=== PATIENT | male | born 1960 | race Caucasian/White ===

== ENCOUNTER → 2023-11-09 09:54 | Outpatient (REF) | payer MEDICARE, BC, SELFPAY | LOC: DHCBC HW 09:54 | PROVIDERS: ATTENDING PHYSICIAN Internal Medicine Cardiovascular Disease | DX: I25.10 Atherosclerotic heart disease of native coronary artery without angina pectoris (principal); Z95.5 Presence of coronary angioplasty implant and graft; I10 Essential (primary) hypertension | CPT/HCPCS: 93306 ==

== ENCOUNTER → 2023-11-11 10:26 | Outpatient (REF) | payer MEDICARE, BC, SELFPAY | LOC: RCS 10:26 | PROVIDERS: ATTENDING PHYSICIAN Internal Medicine Cardiovascular Disease; FAMILY PHYSICIAN Physician Assistant | DX: R00.2 Palpitations (principal) | CPT/HCPCS: 93225; 93226 ==

== ENCOUNTER → 2024-06-18 06:23 | Day surgery (SDC) | payer MEDICARE, BC, SELFPAY ==
[2024-06-18 08:06] LABS: Glucose - Point of Care 116 mg/dl (70-99)
== END ==
LOC: GI 06:23
PROVIDERS: ATTENDING PHYSICIAN Internal Medicine Gastroenterology
DX: Z12.11 Encounter for screening for malignant neoplasm of colon (principal); D12.3 Benign neoplasm of transverse colon; D12.4 Benign neoplasm of descending colon; K63.5 Polyp of colon; K57.30 Diverticulosis of large intestine without perforation or abscess without bleeding; K62.1 Rectal polyp; K64.0 First degree hemorrhoids; D50.0 Iron deficiency anemia secondary to blood loss (chronic); K31.A0 Gastric intestinal metaplasia, unspecified; K25.9 Gastric ulcer, unspecified as acute or chronic, without hemorrhage or perforation; K31.7 Polyp of stomach and duodenum; Z98.84 Bariatric surgery status
CPT/HCPCS: 45385; 45380; 43239; 88305; 82962; 88342

== ENCOUNTER → 2024-07-16 14:04 | Outpatient (REF) | payer MEDICARE, BC, SELFPAY | LOC: HWRAD 14:04 | PROVIDERS: ATTENDING PHYSICIAN Physician Assistant | DX: R10.9 Unspecified abdominal pain (principal) | CPT/HCPCS: 74176 ==

== ENCOUNTER 2024-08-02 12:50 | Emergency (ER) | payer MEDICARE, BC, SELFPAY ==
[2024-08-02 14:00] VITALS: BP 138/76
[2024-08-02 14:14] LABS: ALT (SGPT) 29 U/L (0-50); AST (SGOT) 28 U/L (17-59); Albumin 4.4 g/dl (3.5-5.0); Alkaline Phosphatase 48 U/L (38-126); Blood Urea Nitrogen 28 mg/dl (9-20); Calcium 9.9 mg/dl (8.4-10.2); Carbon Dioxide 22 mmol/L (22-30); Chloride 104 mmol/L (98-107); Glucose 193 mg/dl (70-99); Potassium 4.3 mmol/L (3.5-5.1); Sodium 141 mmol/L (135-145); Total Bilirubin 0.4 mg/dl (0.2-1.3); Total Protein 7.4 g/dl (6.3-8.2); eGFR > 60.00
[2024-08-02 14:15] VITALS: BMI 36.8
[2024-08-02 14:41] LABS: NT-proBNP 136 pg/ml; Troponin I < 0.012 ng/ml
--- NOTE | 2024-08-02 15:13 | ED.GENMED ---
History of Present Illness
General
Chief Complaint: Abnormal Lab Value
Time Seen by Provider: 08/02/24 14:34
History of Present Illness
History of Present Illness:
64-year-old male with history of hypertension and hyperlipidemia presents to the emergency department for evaluation of persistent coughing for the past 10 days. Has been seen in urgent care several times in the past week before coming to the ER.
On July 28 he had a chest x-ray that reportedly showed a lingular infiltrate per documentation, he was started on Augmentin. He followed up 3 days later with worsening symptoms and was switched to doxycycline and given prednisone. He continues
to have frequent dry cough, denies fevers or night sweats.
Review of Systems
Review of Systems
Allergies reviewed?: Yes
All Other Systems: ROS reviewed and negative except as documented in HPI and ROS
Phy Exam
Physical Exam
Physical Exam:
GEN: Well appearing, NAD, WDWN
HEENT: Oral mucosa moist, no scleral icterus
Cardiac: Regular rate and rhythm, no murmurs
Lung: No respiratory distress, no tachypnea, lungs clear to auscultation bilaterally
MSK: No gross deformity or injuries
Skin: Good color, no pallor or jaundice, no rashes
Neuro: AO x3, moves all extremities freely
Psych: Calm, cooperative
Course
Orders/Labs/Results
Orders:
Orders
08/02/24 13:08
CR Chest - 2 Views Urgent
Comment:
Reason For Exam: SOB, cough
08/02/24 13:11
EKG [Electrocardiogram (*1)] Urgent
Reason for Study: Shortness of Breath
EKG- Treatment ONCE
08/02/24 13:26
BNP [NT-proBNP] Urgent
Comprehensive Metabolic Panel Urgent
Troponin I Urgent
08/02/24 14:43
Complete Blood Count/With Diff Urgent
Abnormal Lab Results
08/02/24
13:26
BUN 28 H mg/dl
(9-20)
Glucose 193 H mg/dl
(70-99)
08/02/24 13:26
Vital Signs
Initial and Last Documented VS:
Initial Vital Signs
Temp Pulse Resp Pulse Ox
98.6 F 73 18 95
08/02/24 13:03 08/02/24 13:03 08/02/24 13:03 08/02/24 13:03
Last Documented Vital Signs
Temp Pulse Resp BP Pulse Ox
97.9 F 64 20 138/76 94
08/02/24 14:00 08/02/24 14:00 08/02/24 14:00 08/02/24 14:00 08/02/24 14:26
MDM/Problems Addressed
MDM/Problems Addressed:
Labs unremarkable, CBC was clotted however do not see indication to repeat this given that he is likely to have mild leukocytosis in the setting of steroid use and this would not [employer] at this time. No clinical concern for cardiogenic
etiology to symptoms. Likely atypical pneumonia, educated patient this may take some time to improve. Continue current therapy.
*Critical Care Note
Total Time (30-74mins, 75-104mins- exclusive of procedures): Not Applicable
ED Attending Note
-
Portions of this chart may have been created with voice recognition software.� Occasional wrong word or��sound alike� substitutions may have occurred due to the inherent limitations of voice recognition software.
Discharge Plan
Departure
Patient Disposition: Home (Routine Discharge)
Date of Disposition: 08/02/24
Time of Disposition: 15:13
Patient with high blood pressure during this ER visit?: No
Discharge Problem:
Atypical pneumonia
Instructions: Atypical Pneumonia (Mycoplasma and Viral) (DC)
Prescriptions:
New
albuterol sulfate 2.5 mg /3 mL (0.083 %) solution for nebulization
2.5 mg inhalation Q6H Qty: 90 0RF
promethazine-DM 6.25-15 mg/5 mL syrup
5 ml PO Q6H PRN (Reason: Cough) Qty: 118 0RF
Referrals:
Candi Henley PA-C [Family Provider] -
Interventions
Interventions:
*Risk Screen - Suicide Last Done: 08/02/24 13:03
*General Assessment Last Done: 08/02/24 13:03
*Neglect/Abuse Screening Last Done: 08/02/24 13:03
*ED COVID-19 Vaccine History Last Done: 08/02/24 13:03
*Nursing Disposition Last Done: 08/02/24 15:29
Discharge Date and Time
Discharge Date/Time: 08/02/24 15:30
Print Language: THAI
== END 2024-08-02 15:30 | disposition home or self-care (01) ==
LOC: EMR 12:50
PROVIDERS: Emergency Medicine; EMERGENCY PHYSICIAN Emergency Medicine; FAMILY PHYSICIAN Physician Assistant
DX: J18.9 Pneumonia, unspecified organism (principal); I10 Essential (primary) hypertension; E78.5 Hyperlipidemia, unspecified
CPT/HCPCS: 99285; 71046; 80053; 83880; 84484; 93005

== ENCOUNTER → 2024-08-08 07:53 | Outpatient (REF) | payer MEDICARE, BC, SELFPAY | LOC: HWRAD 07:53 | PROVIDERS: ATTENDING PHYSICIAN Internal Medicine Gastroenterology; FAMILY PHYSICIAN Physician Assistant | DX: R10.11 Right upper quadrant pain (principal) | CPT/HCPCS: 76700 ==

== ENCOUNTER 2025-04-16 11:52 | Emergency (ER) | payer MEDICARE, BC, SELFPAY ==
[2025-04-16 11:54] VITALS: BP 139/77
--- NOTE | 2025-04-16 13:06 | ED.MUSCINJ ---
HPI-Injury
General
Chief Complaint: Fall
Time Seen by Provider: 04/16/25 12:40
History of Present Illness-Injury
Initial Injury comments:
64-year-old male with history of chronic back pain presenting to the emergency department with left elbow pain. Patient reports prior to arrival he tripped, and landed on concrete onto his left elbow. He immediately felt pain and swelling. He has
been using ice to the area. He took a Percocet, which he uses for his back pain. Notes that he is able to range his elbow appropriately, however with pain. Denies head injury or loss of consciousness. Denies any prodromal symptoms in the fall
such as dizziness or lightheadedness. Denies numbness or tingling to the extremity. Denies additional acute medical complaints
Phy Exam
Physical Exam
Physical Exam:
General: Well-appearing, no clinical signs of dehydration, nontoxic and in no acute distress
HEENT: protecting airway
Neck: appears supple
CV: Normal heart rate
Resp: No accessory muscle use, no increased work of breathing
Abd: No distention
Extremities: No obvious deformity to the left elbow. Swelling proximal to the posterior left elbow with tenderness to palpation. Range of motion is globally intact. Distal sensation and pulses intact. No erythema or warmth.
Neuro: alert, no focal neurologic deficit
: deferred
Rectal: deferred
Psych: Normal affect
Skin: Intact
Injury Course
Orders/Labs/Results
Orders:
Orders
04/16/25 11:53
Elbow, 3 view, Left [CR Elbow - Left Min 3 Views ] Urgent
Comment:
Reason For Exam: pain post fall
04/16/25 13:06
Sling Left-Treatment ONCE
MDM/Problems Addressed
MDM/Problems Addressed:
64-year-old male presenting with left elbow pain after a fall on his elbow. Vital signs are normal.
On exam patient is resting comfortably, no acute distress or discomfort. On examination of left elbow, there is swelling proximal to the elbow joint with generalized pain. No focal neurologic deficits. No infectious findings. Range of motion is
grossly intact. X-ray obtained prior to my assessment. No signs of fracture or malalignment, however there is mention of a calcification in the posterior soft tissues suggesting an age-indeterminate but probably chronic triceps avulsion. This is
area of patient's pain. However suspected to be chronic. Will place patient in a sling. Ultimately feel stable for discharge with supportive therapy and outpatient orthopedic follow-up. Copy of results provided to patient. Return precautions
discussed
*Pulse Oximetry
SaO2: 96
Oxygen Mode of Delivery: Room air
Patient hypoxic: no
*Critical Care Note
Total Time (30-74mins, 75-104mins- exclusive of procedures): Not Applicable
ED Attending Note
-
Portions of this chart may have been created with voice recognition software.� Occasional wrong word or��sound alike� substitutions may have occurred due to the inherent limitations of voice recognition software.
Discharge Plan
Departure
Prescriptions:
No Action
albuterol sulfate 2.5 mg /3 mL (0.083 %) solution for nebulization
2.5 mg inhalation Q6H Qty: 90 0RF
promethazine-DM 6.25-15 mg/5 mL syrup
5 ml PO Q6H PRN (Reason: Cough) Qty: 118 0RF
Interventions
Interventions:
*Risk Screen - Suicide Last Done: 04/16/25 11:54
*General Assessment Last Done: 04/16/25 11:54
ED-Musculoskeletal Assessment Last Done: 04/16/25 12:39
ED- Neurological Assessment Last Done: 04/16/25 12:39
ED-Skin Assessment Last Done: 04/16/25 12:41
Discharge Date and Time
Print Language: CAMBODIAN
== END 2025-04-16 13:58 | disposition home or self-care (01) ==
LOC: EMR 11:52
PROVIDERS: EMERGENCY PHYSICIAN Student in an Organized Health Care Education/Training Program; FAMILY PHYSICIAN Physician Assistant
DX: M25.522 Pain in left elbow (principal); M25.422 Effusion, left elbow; W01.0XXA Fall on same level from slipping, tripping and stumbling without subsequent striking against object, initial encounter; M54.9 Dorsalgia, unspecified; Z88.1 Allergy status to other antibiotic agents
CPT/HCPCS: 99283; 73080

== ENCOUNTER 2025-04-29 06:12 | Day surgery (SDC) | payer MEDICARE, BC, SELFPAY ==
[2025-04-25 10:45] LABS: ALT (SGPT) 16 U/L (0-50); AST (SGOT) 19 U/L (17-59); Albumin 4.6 g/dl (3.5-5.0); Alkaline Phosphatase 60 U/L (38-126); Blood Urea Nitrogen 21 mg/dl (9-20); Calcium 9.6 mg/dl (8.4-10.2); Carbon Dioxide 29 mmol/L (22-30); Chloride 103 mmol/L (98-107); Glucose 111 mg/dl (70-99); Potassium 5.1 mmol/L (3.5-5.1); Sodium 139 mmol/L (135-145); Total Protein 8.1 g/dl (6.3-8.2); eGFR > 60.00
[2025-04-29] VITALS (9 sets, daily range): BP systolic 131–152; BP diastolic 68–90; BMI 37.7
[2025-04-29] MEDS: NORMOSOL-R/PLASMALYTE-A 1000 IV (11:40)
[2025-04-29] MEDS: CELEBREX 200 MG PO (11:43)
[2025-04-29] MEDS: TYLENOL 1000 MG PO (11:43)
[2025-04-29 11:47] LABS: Glucose - Point of Care 105 mg/dl (70-99)
[2025-04-29] MEDS: DILAUDID 0.5 MG IV ×2 (14:24→14:42)
[2025-04-29 14:38] LABS: Glucose - Point of Care 131 mg/dl (70-99)
== END 2025-04-29 15:35 | disposition home or self-care (01) ==
LOC: SDS 06:12
PROVIDERS: ATTENDING PHYSICIAN Orthopaedic Surgery; FAMILY PHYSICIAN Physician Assistant
DX: S46.312A Strain of muscle, fascia and tendon of triceps, left arm, initial encounter (principal); W19.XXXA Unspecified fall, initial encounter
CPT/HCPCS: 24342; 36415; 80053; 82962; 93005; C1713

== ENCOUNTER 2025-06-18 06:22 | Day surgery (SDC) | payer MEDICARE, OTHER, SELFPAY ==
[2025-06-18 08:42] LABS: Glucose - Point of Care 128 mg/dl (70-99)
== END 2025-06-18 10:23 | disposition home or self-care (01) ==
LOC: GI 06:22
PROVIDERS: ATTENDING PHYSICIAN Internal Medicine Gastroenterology
DX: K29.50 Unspecified chronic gastritis without bleeding (principal); K31.A0 Gastric intestinal metaplasia, unspecified; K31.7 Polyp of stomach and duodenum; K31.89 Other diseases of stomach and duodenum; Z98.84 Bariatric surgery status
CPT/HCPCS: 43239; 82962; 88305; 88342